=== PATIENT | male | born 1950 | race American Indian/Alaskan Native ===

== ENCOUNTER 2016-11-18 14:12 | Inpatient (IN) | payer MEDICARE ==
--- NOTE | 2016-11-18 15:46 | Consultation ---
History of Present Illness Consult date: 11/18/16 Requesting physician: CHERRIE TIRADO Consult reason: other (DVT, r/o PE) History of present illness: Pt is a 66 YO male with a past medical history significant for HTN, chronic orthostatic hypotension, h/o syncope, Parkinson's, CKD, h/o LLE DVT, h/o PE. He is followed in our office by Dr. Bailey. He presented to our office 1 week ago with c/o LLE swelliing and HERNANDEZ x 2 months. He underwent LLE venous duplex in our office earlier today, which was positive for DVT. Pt was directly admitted to [facility] for further evaluation and management. On evaluation, pt still c/o LLE swelling and HERNANDEZ. He denies chest pain, palpitations, n/v, diaphoresis, dizziness or syncope. Past History Past Medical History: hyperlipidemia, other (parkinson's; DVT; PE; CKD; orthostatic hypotension) Past Surgical History: Other (knee surgery at 12 YOA) Social history: , lives with family. denies: smoking, alcohol abuse, prescription drug abuse Medications and Allergies Allergies Allergy/AdvReac Type Severity Reaction Status Date / Time No Known Allergies Allergy Verified 04/07/15 11:04 Home Medications Medication Instructions Recorded Confirmed Last Taken Type Midodrine [Proamatine] 5 mg PO TID 04/07/15 11/05/15 11/04/15 History 5mg Carbidopa/Levodopa [Carbidopa-Levo 1 each PO BID 11/05/15 11/05/15 11/04/15 History 25-100 mg Odt] 1 Fludrocortisone [Florinef] 1 tab PO DAILY 11/05/15 11/05/15 11/04/15 History 1 tab Review of Systems Constitutional: no weight loss, no weight gain, no fever, no chills, no sweats Ears, nose, mouth and throat: no ear pain, no nose pain, no sinus pressure, no sinus pain Cardiovascular: edema, dyspnea on exertion, leg edema (LLE), decreased exercise tolerance, no chest pain, no orthopnea, no palpitations, no rapid/irregular heart beat, no syncope, no lightheadedness, no paroxysmal nocturnal dyspnea Respiratory: dyspnea on exertion, no cough, no congestion, no wheezing, no pain on inspiration Gastrointestinal: no abdominal pain, no nausea, no vomiting, no diarrhea, no constipation, no change in bowel habits, no hematemesis Genitourinary Male: no dysuria, no hematuria, no flank pain, no discharge, no urinary frequency, no urinary hesitancy Musculoskeletal: no neck stiffness, no neck pain, no shooting arm pain, no arm numbness/tingling, no low back pain, no shooting leg pain, no leg numbness/ tingling, no redness of joints Integumentary: no rash, no pruritis, no redness, no sores, no wounds Neurological: no head injury, no paralysis, no weakness, no parathesias, no numbness, no tingling, no seizures, no syncope Psychiatric: no anxiety Endocrine: no cold intolerance, no heat intolerance Hematologic/Lymphatic: no easy bruising, no easy bleeding, no lymphadenopathy Allergic/Immunologic: no urticaria, no wheezing, no persistent infections Physical Examination General appearance: no acute distress HEENT: Positive: PERRL, Normocephaly, Mucus Membranes Moist Neck: Positive: neck supple, trachea midline Cardiac: Positive: Reg Rate and Rhythm, S1/S2 Lungs: Positive: clear to auscultation Neuro: Positive: Grossly Intact, Cranial Nerve 2-12 Intact, Other (flat affect) Abdomen: Positive: Unremarkable, Soft, Active Bowel Sounds Skin: Positive: Clear. Negative: Rash Musculoskeletal: Normal Range of Motion Extremities: Present: +2 Edema (LLE) Results - Imaging and Cardiology Echo: report reviewed (01/2015: EF 55-60%, mild MR, mild TR, borderline pulm HTN , RVSP 38mmHg) EKG: pending Assessment and Plan Assessment: Acute LLE DVT HERNANDEZ HTN CKD Chronic orthostatic hypotension H/O syncope Parkinson's H/O LLE DVT H/O PE Plan: Obtain V/Q scan to r/o PE. F/u echo. Await labwork and EKG. Initiate heparin gtt with initial bolus and plan to convert to OAC prior to discharge. Recommend hematology consultation for recurrent DVT. Assessment and plan reviewed with pt and pt's at bedside. The patient has been seen in conjunction with Dr. Chris who agrees with the assessment and plan of care.
--- NOTE | 2016-11-18 20:54 | History and Physical Report ---
History of Present Illness Date of examination: 11/18/16 Date of admission: 11/18/16 15:30 Chief complaint: LLE DVT History of present illness: Pt is a 66 YO male with a past medical history significant for HTN, chronic orthostatic hypotension, h/o syncope, Parkinson's, CKD, h/o LLE DVT, h/o PE. He is followed in office by Dr. Bailey. He presented 1 week ago with c/o LLE swelliing and HERNANDEZ x 2 months. He underwent LLE venous duplex in THE office earlier today, which was positive for DVT. Pt was directly admitted to [facility] for further evaluation and management. On evaluation, pt still c/o LLE swelling and HERNANDEZ. He denies chest pain, palpitations, n/v, diaphoresis, dizziness or syncope. Past History Past Medical History: hyperlipidemia, other (parkinson's; DVT; PE; CKD; orthostatic hypotension) Past Surgical History: Other (knee surgery at 12 YOA) Social history: , lives with family. denies: smoking, alcohol abuse, prescription drug abuse Medications and Allergies Allergies Allergy/AdvReac Type Severity Reaction Status Date / Time No Known Allergies Allergy Verified 04/07/15 11:04 Home Medications Medication Instructions Recorded Confirmed Last Taken Type Midodrine [Proamatine] 5 mg PO TID 04/07/15 11/05/15 11/04/15 History 5mg Carbidopa/Levodopa [Carbidopa-Levo 1 each PO BID 11/05/15 11/05/15 11/04/15 History 25-100 mg Odt] 1 Fludrocortisone [Florinef] 1 tab PO DAILY 11/05/15 11/05/15 11/04/15 History 1 tab Review of Systems Constitutional: no weight loss, no weight gain, no fever, no chills, no sweats Ears, nose, mouth and throat: no ear pain, no nose pain, no sinus pressure, no sinus pain Cardiovascular: edema, dyspnea on exertion, leg edema (LLE), decreased exercise tolerance, no chest pain, no orthopnea, no palpitations, no rapid/irregular heart beat, no syncope, no lightheadedness, no paroxysmal nocturnal dyspnea Respiratory: dyspnea on exertion, no cough, no congestion, no wheezing, no pain on inspiration Gastrointestinal: no abdominal pain, no nausea, no vomiting, no diarrhea, no constipation, no change in bowel habits, no hematemesis Genitourinary Male: no dysuria, no hematuria, no flank pain, no discharge, no urinary frequency, no urinary hesitancy Musculoskeletal: no neck stiffness, no neck pain, no shooting arm pain, no arm numbness/tingling, no low back pain, no shooting leg pain, no leg numbness/ tingling, no redness of joints Integumentary: no rash, no pruritis, no redness, no sores, no wounds Neurological: no head injury, no paralysis, no weakness, no parathesias, no numbness, no tingling, no seizures, no syncope Psychiatric: no anxiety Endocrine: no cold intolerance, no heat intolerance Hematologic/Lymphatic: no easy bruising, no easy bleeding, no lymphadenopathy Allergic/Immunologic: no urticaria, no wheezing, no persistent in Past History Past Medical History: hyperlipidemia, other (parkinson's; DVT; PE; CKD; orthostatic hypotension) Past Surgical History: Other (knee surgery at 12 YOA) Social history: , lives with family. denies: smoking, alcohol abuse, prescription drug abuse Medications and Allergies Allergies Allergy/AdvReac Type Severity Reaction Status Date / Time No Known Allergies Allergy Verified 04/07/15 11:04 Home Medications Medication Instructions Recorded Confirmed Last Taken Type Midodrine [Proamatine] 5 mg PO TID 04/07/15 11/05/15 11/04/15 History 5mg Carbidopa/Levodopa [Carbidopa-Levo 1 each PO BID 11/05/15 11/05/15 11/04/15 History 25-100 mg Odt] 1 Fludrocortisone [Florinef] 1 tab PO DAILY 11/05/15 11/05/15 11/04/15 History 1 tab Exam - Constitutional Vitals: Temp Pulse Resp BP Pulse Ox 98.5 F 75 18 155/94 99 11/18/16 20:18 11/18/16 20:18 11/18/16 20:37 11/18/16 20:18 11/18/16 20:18 General appearance: Present: no acute distress, well-nourished - EENT Eyes: Present: PERRL ENT: hearing intact, clear oral mucosa - Neck Neck: Present: supple, normal ROM - Respiratory Respiratory effort: normal Respiratory: bilateral: CTA - Cardiovascular Heart Sounds: Present: S1 & S2. Absent: rub, click - Extremities Extremities: pulses symmetrical, No edema, abnormal (lle SWOLLEN AND TENDER) Peripheral Pulses: within normal limits - Abdominal General gastrointestinal: Present: soft, non-tender, non-distended, normal bowel sounds Male genitourinary: Present: normal - Integumentary Integumentary: Present: clear, warm, dry - Musculoskeletal Musculoskeletal: gait normal, strength equal bilaterally - Psychiatric Psychiatric: appropriate mood/affect, intact judgment & insight - Neurologic Neurologic: CNII-XII intact, moves all extremities Results - Labs CBC & Chem 7: 11/18/16 21:20 - Imaging and Cardiology EKG: report reviewed Assessment and Plan Advance Directives: Yes VTE prophylaxis?: Chemical Plan of care discussed with patient/family: Yes - Patient Problems (1) DVT (deep venous thrombosis) Current Visit: No Status: Acute Qualifiers: DVT location: lower extremity Affected thrombotic vein of extremity: A Chronicity: C Laterality: left Plan to address problem: Patient initiated on IV Heparin standard protocol will defer to cardiology for oral anticoagulation (2) [place] disease Current Visit: Yes Status: Acute Plan to address problem: Cont Florinef (3) Parkinson disease Current Visit: Yes Status: Chronic Plan to address problem: cont carbidopa (4) DVT prophylaxis Current Visit: Yes Status: Acute Plan to address problem: on Heparindrip
[2016-11-18] MEDS ORDERED: HEPARIN/ 0.45% NACL-25,000 UNIT/500 ML 25,000 UNIT/500 ML BAG IV SCH (21:00)
[2016-11-18 21:37] LABS: Hematocrit 35.9 % (35.5-45.6); Hemoglobin 11.8 gm/dl (11.8-15.2)
[2016-11-18 21:47] LABS: INR 1.27 (0.87-1.13)
[2016-11-18 21:48] LABS: Partial Thromboplastin Time 30.3 Sec. (24.2-36.6)
[2016-11-18] MEDS ORDERED: NON-FORMULARY (Carbidopa/Levodopa [Carbidopa-Levo 25-100 Mg Odt] 1 EACH) PO SCH (22:00)
[2016-11-18] MEDS: SINEMET PO SCH (22:53)
[2016-11-18] MEDS: FLORINEF PO SCH (22:53)
--- NOTE | 2016-11-19 08:57 | Nuclear Medicine Report ---
LUNG SCAN, VENTILATION AND PERFUSION: History: DVT/SOB. Findings: Inhalation of Xenon gas demonstrates a normal distribution of the activity throughout both lungs. The wash out phases show no focal retention of activity. After injection of Technetium 99m macroaggregated albumin gamma camera imaging of the lungs in multiple projections demonstrates normal pulmonary contours with a homogeneous distribution of activity. No focal areas of perfusion deficiency are identified. IMPRESSION: Normal study.
--- NOTE | 2016-11-19 09:30 | XRay Report ---
Single view chest: History: PE. Findings: Normal cardiomediastinal silhouette. Trachea is midline. No consolidation, pneumothorax or pleural effusion. Impression: No acute cardiopulmonary findings.
[2016-11-19] MEDS: SINEMET PO SCH ×2 (10:18→22:50)
[2016-11-19] MEDS: FLORINEF PO SCH (10:18)
[2016-11-19] MEDS: PROAMATINE PO SCH ×2 (10:20→15:24)
--- NOTE | 2016-11-19 11:33 | Progress Note ---
Assessment and Plan Acute DVT Hypercoagulable state Shortness of breath Pulmonary hypertension Recommend changing from IV heparin to L across 10 mg twice a day for one week and then 5 mg twice a day echo pending Subjective Date of service: 11/19/16 Principal diagnosis: DVT Interval history: Patient sitting in his chair has some mild shortness of breath swelling is been going on for several months Objective Vital Signs Temp Pulse Resp BP Pulse Ox 11/19/16 10:30 97.8 F 72 16 151/93 99 11/19/16 04:57 98.5 F 70 18 155/93 98 11/19/16 00:13 98.5 F 75 18 168/97 96 11/18/16 20:37 18 11/18/16 20:18 98.5 F 75 18 155/94 99 11/18/16 16:37 98.6 F 70 22 187/109 99 - Physical Examination General: No Apparent Distress HEENT: Positive: PERRL, Normocephaly, Mucus Membranes Moist Neck: Positive: neck supple, trachea midline Cardiac: Positive: Reg Rate and Rhythm Lungs: Positive: clear to auscultation Neuro: Positive: Grossly Intact, Cranial Nerve 2-12 Intact, Other (flat affect) Abdomen: Positive: Unremarkable, Soft, Active Bowel Sounds Skin: Positive: Clear. Negative: Rash Musculoskeletal: Normal Range of Motion Extremities: Present: +2 Edema (LLE) - Labs and Meds Coagulation 11/18/16 Range/Units 21:20 PT 15.8 H (12.2-14.9) Sec. INR 1.27 H (0.87-1.13) APTT 30.3 (24.2-36.6) Sec. CBC 11/18/16 Range/Units 21:20 Hgb 11.8 (11.8-15.2) gm/dl Hct 35.9 (35.5-45.6) % Plt Count 119 L (140-440) K/mm3 - Imaging and Cardiology EKG: report reviewed Echo: report reviewed (01/2015: EF 55-60%, mild MR, mild TR, borderline pulm HTN , RVSP 38mmHg) - Telemetry EKG Rhythm: Sinus Rhythm
[2016-11-19 12:44] LABS: Albumin 4.1 g/dL (3.9-5); Albumin/Globulin Ratio 1.2 %; Alkaline Phosphatase 69 units/L (35-129); Anion Gap 18 mmol/L; Blood Urea Nitrogen 27 mg/dL (9-20); Calcium 9.3 mg/dL (8.4-10.2); Carbon Dioxide 27 mmol/L (22-30); Chloride 100.4 mmol/L (98-107); Glucose 91 mg/dL (75-100); Potassium 4.3 mmol/L (3.6-5.0); Sodium 141 mmol/L (137-145); Total Protein 7.4 g/dL (6.3-8.2)
[2016-11-19 12:49] LABS: Alanine Aminotransferase < 5 units/L (7-56)
--- NOTE | 2016-11-19 15:33 | Hem/Onc Consultation ---
History of Present Illness - Reason for Consult Consult date: 11/19/16 - History of Present Illness Mr Morrison is a 66 yom with a hx of dvt/pe in 2015 who presents with recurrent DVT. He does not remember any precipitating events leading to his thrombotic event in 2015. He states he did not take his anticoagulation after he went home , was treated with heparin in the hospital only. Two months ago he developed swelling and pain in the LLE and went to his physician's office; US c/w DVT LLE. He is on a heparin infusion currently. He has a history of prior thrombocytopenia in the hospital. Denies tobacco use, testosterone use. No recent trips, surgeries, or immobilizations. Last colonoscopy was 5-6 years ago. His daughter has blood clots also. Past History Past Medical History: hyperlipidemia, other (parkinson's; DVT; PE; CKD; orthostatic hypotension) Past Surgical History: Other (knee surgery at 12 YOA) Social history: , lives with family. denies: smoking, alcohol abuse, prescription drug abuse Medications and Allergies Allergies Allergy/AdvReac Type Severity Reaction Status Date / Time No Known Allergies Allergy Verified 04/07/15 11:04 Home Medications Medication Instructions Recorded Confirmed Last Taken Type Midodrine [Proamatine] 5 mg PO TID 04/07/15 11/05/15 11/04/15 History 5mg Carbidopa/Levodopa [Carbidopa-Levo 1 each PO BID 11/05/15 11/05/15 11/04/15 History 25-100 mg Odt] 1 Fludrocortisone [Florinef] 1 tab PO DAILY 11/05/15 11/05/15 11/04/15 History 1 tab Active Meds: Active Medications Carbidopa/Levodopa (Sinemet) 1 each PO BID HEMA Last Admin: 11/19/16 10:18 Dose: 1 each Fludrocortisone Acetate (Florinef) 0.1 mg PO DAILY HEMA Last Admin: 11/19/16 10:18 Dose: 0.1 mg Heparin Sodium/Sodium Chloride (Heparin/ 0.45% Nacl-25,000 Unit/500 Ml) 25,000 unit in 500 mls @ 26 mls/hr IV TITR HEMA; 1,300 UNITS/HR PRN Reason: Protocol Last Titration: 11/19/16 15:01 Dose: 1,050 units/hr, 21 mls/hr Midodrine (Proamatine) 5 mg PO TID [facility] Last Admin: 11/19/16 15:24 Dose: 5 mg Review of Systems Constitutional: fatigue Respiratory: shortness of breath Gastrointestinal: no nausea Musculoskeletal: other (leg pain) Integumentary: no rash Neurological: other (parkinson's disease) Exam - Constitutional Vitals: Last Vital Signs Temp 97.6 F 11/19/16 11:44 Pulse 72 11/19/16 10:30 Resp 20 11/19/16 11:44 BP 177/96 11/19/16 11:44 Pulse Ox 98 11/19/16 11:44 General appearance: no acute distress - Neck Neck: supple - Respiratory Respiratory effort: Positive: normal Respiratory: bilateral: CTA - Cardiovascular Rhythm: regular Extremities: No edema - Gastrointestinal General gastrointestinal: Present: soft - Neurologic Neurologic: other (flat affect, slow movements) Results - Labs lab Results: Laboratory Results - last 24 hr 11/18/16 11/18/16 11/19/16 21:20 21:20 05:44 Hgb 11.8 Hct 35.9 Plt Count 119 L PT 15.8 H INR 1.27 H APTT 30.3 Heparin Anti-Xa Level 0.76 H Sodium Potassium Chloride Carbon Dioxide Anion Gap BUN Creatinine Estimated GFR BUN/Creatinine Ratio Glucose Calcium Total Bilirubin AST ALT Alkaline Phosphatase Total Protein Albumin Albumin/Globulin Ratio 11/19/16 11/19/16 11:58 11:58 Hgb Hct Plt Count PT INR APTT Heparin Anti-Xa Level 1.47 H Sodium 141 Potassium 4.3 Chloride 100.4 Carbon Dioxide 27 Anion Gap 18 BUN 27 H Creatinine 1.5 Estimated GFR 56 BUN/Creatinine Ratio 18.00 Glucose 91 Calcium 9.3 Total Bilirubin 0.60 AST 20 ALT < 5 L Alkaline Phosphatase 69 Total Protein 7.4 Albumin 4.1 Albumin/Globulin Ratio 1.2 Assessment and Plan 1. recurrent VTE, spontaneous - VQ scan negative for PE - agree with Deanna - f/u with Dr Orta in clinic for hypercoagulable w/u - reminded patient to be vigilant about following up with age appropraite cancer screening; colonscopy, etc 2. thrombocytopenia - check vb12, folate, hep c antibody, abdominal US. recheck cbc. hx of platelet count ~100K
--- NOTE | 2016-11-19 16:07 | Progress Note ---
Assessment and Plan Acute left lower extremity DVT - Patient initiated on IV Heparin standard protocol - We'll change to eliquis 10 mg by mouth twice a day - Monitored H&H - Up 2-D echo result Possible hypercoagulable state - Placed hematology consult, will follow recommendation History of Parkinson's disease - We will continue carbidopa History of [place] disease - Continue Florinef and ankle Hyperlipidemia - Continue statin Brief history: Pt is a 66 YO male with a past medical history significant for HTN, chronic orthostatic hypotension, h/o syncope, Parkinson's, CKD, h/o LLE DVT, h/o PE followed in office by Dr. Bailey presented 1 week ago with c/o LLE swelliing and HERNANDEZ x 2 months. He underwent LLE venous duplex as outpatient, which was positive for DVT. Subjective Date of service: 11/19/16 Principal diagnosis: DVT Interval history: Patient seen and examined no acute event o/n denies any overt active bleeding episode denies any chest pain Objective - Constitutional Vitals: Vital Signs - 12hr 11/19/16 11/19/16 11/19/16 04:57 10:30 11:40 Temperature 98.5 F 97.8 F Pulse Rate 70 72 Respiratory 18 16 Rate Blood Pressure 155/93 151/93 177/96 Blood Pressure [Left] O2 Sat by Pulse 98 99 Oximetry 11/19/16 11/19/16 11/19/16 11:42 11:44 15:54 Temperature 97.6 F 97.6 F 97.8 F Pulse Rate 72 Respiratory 20 20 16 Rate Blood Pressure 168/112 Blood Pressure 177/96 [Left] O2 Sat by Pulse 98 97 Oximetry General appearance: Present: no acute distress, other (elderly) - EENT Eyes: PERRL, EOM intact ENT: hearing intact, clear oral mucosa Ears: bilateral: normal - Neck Neck: supple, normal ROM - Respiratory Respiratory effort: normal Respiratory: bilateral: CTA - Cardiovascular Rhythm: regular Heart Sounds: Present: S1 & S2. Absent: gallop, rub Extremities: pulses intact, normal color, Full ROM Extremity abnormal: edema (LLE) - Gastrointestinal General gastrointestinal: Present: soft, non-tender, non-distended, normal bowel sounds - Integumentary Integumentary: clear, warm, dry - Musculoskeletal Musculoskeletal: 1, strength equal bilaterally - Neurologic Neurologic: moves all extremities - Psychiatric Psychiatric: memory intact, appropriate mood/affect, intact judgment & insight - Labs CBC & Chem 7: 11/18/16 21:20 11/19/16 11:58 Labs: Abnormal lab results 11/18/16 11/18/16 11/19/16 Range/Units 21:20 21:20 05:44 Plt Count 119 L (140-440) K/mm3 PT 15.8 H (12.2-14.9) Sec. INR 1.27 H (0.87-1.13) Heparin Anti-Xa Level 0.76 H (0.3-0.7) U.I./ml BUN (9-20) mg/dL ALT (7-56) units/L 11/19/16 11/19/16 Range/Units 11:58 11:58 Plt Count (140-440) K/mm3 PT (12.2-14.9) Sec. INR (0.87-1.13) Heparin Anti-Xa Level 1.47 H (0.3-0.7) U.I./ml BUN 27 H (9-20) mg/dL ALT < 5 L (7-56) units/L
[2016-11-19 16:26] LABS: Basophils % (Auto) 0.5 % (0.0-1.8); Hematocrit 39.2 % (35.5-45.6); Hemoglobin 13.1 gm/dl (11.8-15.2); Mean Corpuscular HGB Conc 33 % (32-34); Mean Corpuscular Hemoglobin 31 pg (28-32); Mean Corpuscular Volume 92 fl (84-94); Platelet Count 134 K/mm3 (140-440); Red Blood Count 4.28 M/mm3 (3.65-5.03); Red Cell Distribution Width 13.2 % (13.2-15.2); White Blood Count 6.3 K/mm3 (4.5-11.0)
[2016-11-19] MEDS: ELIQUIS PO SCH (17:44)
[2016-11-19] MEDS ORDERED: APRESOLINE IV PRN (22:35)
[2016-11-20] MEDS: PROAMATINE PO SCH ×2 (01:32→12:52)
[2016-11-20] MEDS: ELIQUIS PO SCH (06:47)
[2016-11-20 07:10] LABS: Anion Gap 16 mmol/L; BUN/Creatinine Ratio 17.85; Blood Urea Nitrogen 25 mg/dL (9-20); Calcium 8.6 mg/dL (8.4-10.2); Carbon Dioxide 25 mmol/L (22-30); Chloride 102.9 mmol/L (98-107); Glucose 94 mg/dL (75-100); Potassium 4.1 mmol/L (3.6-5.0); Sodium 140 mmol/L (137-145)
[2016-11-20 07:10] LABS: Hematocrit 33.9 % (35.5-45.6)
[2016-11-20 10:12] VITALS: BP 139/80
--- NOTE | 2016-11-20 10:25 | Ultrasound Report ---
Abdominal sonogram: History: Thrombus cytopenia. Findings: Aortic diameter 2.3 cm. No aneurysm. Very limited views of liver due to overlying rib shadows and bowel gas. No obvious mass or dilatation of intrahepatic ducts. Common bile duct diameter 3.9 mm. Gallbladder wall thickness 1.9 mm. No calculi. Right kidney 9.8 x 4.5 x 5.2 cm. Cortical thickness is 1.4 cm. Left kidney 11.4 x 5.7 x 2.0 cm. Cortical thickness 1.5 cm. Spleen 8.2 cm. Pancreas not well visualized and obscured by bowel gas. Impression: Limited study. Findings as detailed above.
--- NOTE | 2016-11-20 10:56 | Progress Note ---
Assessment and Plan Acute DVT Hypercoagulable state Shortness of breath Pulmonary hypertension Recommend continue elquis 10 mg twice a day for one week and then 5 mg twice a day follow with primary packager hand one to 2 weeks Subjective Date of service: 11/20/16 Principal diagnosis: DVT Interval history: Patient says shortness of breath has improved Objective Vital Signs Temp Pulse Resp BP BP Pulse Ox 11/20/16 10:08 98.6 F 16 139/80 11/20/16 09:22 66 11/20/16 06:30 98.9 F 76 18 145/88 97 11/20/16 00:32 99.0 F 73 18 131/76 94 11/19/16 22:50 184/104 11/19/16 22:27 184/104 11/19/16 20:21 99.0 F 73 18 161/99 100 11/19/16 15:54 97.8 F 72 16 168/112 97 11/19/16 15:00 65 11/19/16 11:44 97.6 F 20 177/96 98 11/19/16 11:42 97.6 F 20 11/19/16 11:40 177/96 - Physical Examination General: No Apparent Distress HEENT: Positive: PERRL, Normocephaly, Mucus Membranes Moist Neck: Positive: neck supple, trachea midline Cardiac: Positive: Reg Rate and Rhythm Lungs: Positive: clear to auscultation Neuro: Positive: Grossly Intact, Cranial Nerve 2-12 Intact, Other (flat affect) Abdomen: Positive: Unremarkable, Soft, Active Bowel Sounds Skin: Positive: Clear. Negative: Rash Musculoskeletal: Normal Range of Motion Extremities: Present: +1 Edema - Labs and Meds Cardiac Enzymes 11/19/16 Range/Units 11:58 AST 20 (5-40) units/L CBC 11/19/16 11/20/16 Range/Units 15:34 06:19 WBC 6.3 (4.5-11.0) K/mm3 RBC 4.28 (3.65-5.03) M/mm3 Hgb 13.1 11.0 L (11.8-15.2) gm/dl Hct 39.2 33.9 L (35.5-45.6) % Plt Count 134 L 120 L (140-440) K/mm3 Lymph # 1.8 (1.2-5.4) K/mm3 [place] # 0.6 (0.0-0.8) K/mm3 Eos # 0.3 (0.0-0.4) K/mm3 Baso # 0.0 (0.0-0.1) K/mm3 Comprehensive Metabolic Panel 11/19/16 11/20/16 Range/Units 11:58 06:20 Sodium 141 140 (137-145) mmol/L Potassium 4.3 4.1 (3.6-5.0) mmol/L Chloride 100.4 102.9 (98-107) mmol/L Carbon Dioxide 27 25 (22-30) mmol/L BUN 27 H 25 H (9-20) mg/dL Creatinine 1.5 1.4 (0.8-1.5) mg/dL Glucose 91 94 (75-100) mg/dL Calcium 9.3 8.6 (8.4-10.2) mg/dL AST 20 (5-40) units/L ALT < 5 L (7-56) units/L Alkaline Phosphatase 69 (35-129) units/L Total Protein 7.4 (6.3-8.2) g/dL Albumin 4.1 (3.9-5) g/dL - Imaging and Cardiology EKG: report reviewed Echo: report reviewed (01/2015: EF 55-60%, mild MR, mild TR, borderline pulm HTN , RVSP 38mmHg) - Telemetry EKG Rhythm: Sinus Rhythm
--- NOTE | 2016-11-20 11:14 | Discharge Summary ---
Providers - Providers Date of Admission: 11/18/16 15:30 Date of discharge: 11/20/16 Attending physician: CHERRIE TIRADO 11/18/16 14:16 Consult to Physician [CONS] Routine Consulting Provider: JASS GAN Reason For Exam: DVT LLE Place consult to:: [facility] Notified:: alonzo 11/19/16 09:06 Consult to Physician [CONS] Routine Consulting Provider: ADRIEL FLOREZ Reason For Exam: recurrent dvt Place consult to:: dr florez Notified:: dr florez Primary care physician: YAS HONG Hospitalization Hospital course: Discharge diagnosis and management: Acute left lower extremity DVT - Patient initiated on IV Heparin standard protocol - We'll change to eliquis 10 mg by mouth twice a day - Monitored H&H - Up 2-D echo result Possible hypercoagulable state - Placed hematology consult, will follow recommendation History of Parkinson's disease - We will continue carbidopa History of [place] disease - Continue Florinef and ankle Hyperlipidemia - Continue statin Brief history: Pt is a 66 YO male with a past medical history significant for HTN, chronic orthostatic hypotension, h/o syncope, Parkinson's, CKD, h/o LLE DVT, h/o PE followed in office by Dr. Bailey presented 1 week ago with c/o LLE swelliing and HERNANDEZ x 2 months. He underwent LLE venous duplex as outpatient, which was positive for DVT. Disposition: TO HOME OR SELFCARE Core Measure Documentation - Palliative Care Palliative Care/ Comfort Measures: Not Applicable - Core Measures Any of the following diagnoses?: none Exam - Constitutional Vitals: Temp Pulse Resp BP Pulse Ox 98.6 F 66 16 139/80 97 11/20/16 10:08 11/20/16 09:22 11/20/16 10:08 11/20/16 10:08 11/20/16 06:30 Plan Activity: advance as tolerated Weight Bearing Status: Non-Weight Bearing Diet: low fat, low salt Additional Instructions: f/u with cardiology in one week Follow up with: YAS HONG MD [Primary Care Provider] - 7 Days Prescriptions: Apixaban [Eliquis] 10 mg PO Q12H #60 tablet
[2016-11-20] MEDS: SINEMET PO SCH (12:52)
[2016-11-20] MEDS: FLORINEF PO SCH (12:52)
== END 2016-11-20 14:16 | disposition home or self-care (01) | DRG 300 ==
LOC: UNDOADMIN 14:12 → 4A 14:12
PROVIDERS: ADMIT Internal Medicine; ATTEND Internal Medicine
DX: I82.402 Acute embolism and thrombosis of unspecified deep veins of left lower extremity (principal); E27.1 Primary adrenocortical insufficiency; D68.59 Other primary thrombophilia; G20 Parkinson's disease; I12.9 Hypertensive chronic kidney disease with stage 1 through stage 4 chronic kidney disease, or unspecified chronic kidney disease; E78.5 Hyperlipidemia, unspecified; D69.6 Thrombocytopenia, unspecified; Z86.711 Personal history of pulmonary embolism; I95.1 Orthostatic hypotension; I27.2 Other secondary pulmonary hypertension; N18.9 Chronic kidney disease, unspecified
CPT/HCPCS: 36415; 71010; 76700; 78582; 80048; 80053; 82607; 82747; 85014; 85018; 85025; 85049; 85520; 85610; 85730; 86803; 93306; A9540; A9558; J0360; J1644